=== PATIENT | female | born 1995 | race African-American/Black ===

== ENCOUNTER 2017-07-13 13:06 | Observation (INO) | payer BC, MEDICAID ==
[~2017-07-13] VITALS: Ht 167.6 cm; Wt 101.0 kg
[2017-07-13] VITALS (15 sets, daily range): BP systolic 123–138; BP diastolic 55–78; PULSE 97–118; RESP 18; TEMP 98
--- NOTE | 2017-07-13 15:40 | PD ---
HPI Chief Complaint Elevated blood pressure Date Seen: Jul 13, 2017 Time Seen: 15:15 Travel History International Travel<30 Days: No Contact w/Intl Traveler<30Days: No Known Affected Area: No History of Present Illness HPI Patient is a 21-year-old at 30 weeks and 1 day who presents as a referral from [facility] for elevated blood pressure. At [facility], she had a recorded blood pressure 172/92. She reports a headache today, nausea for the past 3 days, progressively worse shortness of breath throughout . She denies any visual changes, vomiting, chest pain, pain under the ribs. She reports that her ankles have been swelling mildly for the past 2 weeks. History Past Medical History Narrative Medical Patient reports a history of asthma. Obstetric History Obstetric History Patient is a . She reports that she has had an uncomplicated thus far. Past Surgical History Surgical History: No Previous Surgery Family History Narrative Family History Patient reports that her maternal grandmother has diabetes. Social History Narrative Social History Patient lives at home with her aunt. Alcohol Use: No Tobacco Use: No Substance Abuse: No Allergies-Medications (Allergen,Severity, Reaction): Coded Allergies: grass pollen (Verified Allergy, Mild, 07/13/17) milk (Verified Adverse Reaction, Mild, 07/13/17) Review of Systems General / Constitutional: No: Fever, Chills Eyes: No: Visual changes HENT: Headaches Cardiovascular: No: Chest Pain or Discomfort Respiratory: Short of Breath Gastrointestinal: Nausea, No: Vomiting, Abdominal Pain Genitourinary: No: Dysuria Musculoskeletal: Edema (ankles), No: Cramping, Pain Physical Exam Blood pressure 120/63, 131/67, 123/55 Pulse 1 16 Respirations 18 Temperature 99.0 Pulse ox 99-100% on room air Pain 3/10 Narrative GENERAL: Well-nourished, well-developed patient. SKIN: Warm and dry. HEAD: Normocephalic and atraumatic. EYES: No scleral icterus. No injection or drainage. ENT: No nasal drainage noted. Mucous membranes pink. Airway patent. NECK: Supple, trachea midline. No JVD. CARDIOVASCULAR: Regular rate and rhythm without murmurs, gallops, or rubs. RESPIRATORY: Breath sounds equal bilaterally. No accessory muscle use. ABDOMEN/GI: Abdomen soft, non-tender, bowel sounds present, no rebound, no guarding Gravid to 30 weeks size GENITOURINARY: Uterine Contractions: 3 contractions every 3-4 minutes, then no contractions FHT's: Category: Category 1 Baseline: 150 Reactive: 10 x 10 accelerations present, but no 15 x 15 accelerations present. Variability: moderate Decels: none EXTREMITIES: No cyanosis or edema. BACK: Nontender without obvious deformity. No CVA tenderness. NEUROLOGICAL: Awake and alert. Motor and sensory grossly within normal limits. Five out of 5 muscle strength in all muscle groups. Normal speech. Data Data Vital Signs Reviewed: Yes Orders Orders Cbc No Diff, Includes Plts (07/13/17 15:25) Comprehensive Metabolic Panel (07/13/17 15:25) Uric Acid (07/13/17 15:25) Urinalysis - C+S If Indicated (07/13/17 15:25) Protein Creat Ratio, Random Ur (07/13/17 15:25) MDM Plan Patient is a 21-year-old at 30 weeks and 1 day who presents as a referral from [facility] for elevated blood pressure. At [facility], she had a recorded blood pressure 172/92. Blood pressures here have been: 120/63, 131/67, 123/55. 1. elevated bp in -Monitor vitals, heart rate, labor status/tocometry -UA, urine protein/creatinine ratio -CBC, CMP, uric acid -If all labs are normal, plan to discharge patient home 2. headache -Tylenol d/w Dr. Bosch Addendum: WBC of 17.7, hemoglobin of 11.3. Urine: Hazy urine, 40 ketones, trace occult blood, positive nitrites, large leukocyte esterase, 9 RBCs, 51 WBCs, occasional bacteria, few mucus, culture indicated. Urine random total protein of 16, protein/creatinine ratio of 0.31. Given these labs, will admit for IV antibiotics for UTI and 24-hour urine protein collection. -Ceftriaxone 1 g IV every 12 hours -24 hour urine protein -continue plan as above Diagnosis Diagnosis: Primary Impression: Urine protein increased Additional Impressions: BP (high blood pressure) Headache UTI (urinary tract infection) in , antepartum Garcia Edwards MD R2 Jul 13, 2017 15:40
[2017-07-13] MEDS ORDERED: ACETAMINOPHEN 325 MG TAB PO ONE (15:45)
[2017-07-13 15:54] LABS: HEMATOCRIT 34.3 % (35.0-46.0); MEAN CELL VOLUME 91.6 FL (80.0-100.0); MEAN CORPUSCULAR HEMOGLOBIN 30.3 PG (27.0-34.0); MEAN CORPUSCULAR HGB CONC 33.1 % (32.0-36.0); PLATELET COUNT 194 TH/MM3 (150-450); RED BLOOD COUNT 3.75 MIL/MM3 (4.00-5.30); RED CELL DISTRIBUTION WIDTH 15.4 % (11.6-17.2); REVIEW FLAG FINAL; WHITE BLOOD COUNT 17.7 TH/MM3 (4.0-11.0)
[2017-07-13 16:07] LABS: BACTERIA, URINE OCC /hpf; BLOOD, URINE TRACE (NEG); COMMENT (UR) CULTURE INDICATED; CULTURE IF INDICATED CULTURE INDICATED; GLUCOSE,URINE NEG (NEG); KETONE, URINE 40 mg/dL (NEG); MUCUS URINE FEW /lpf (OCC); NITRITE,URINE POS (NEG); PH, URINE 6.5 (5.0-8.5); SQUAMOUS EPITHELIAL CELL URINE 5 /hpf (0-5); URINE COLOR YELLOW (YELLW/STRAW)
[2017-07-13 16:25] LABS: ALT (GPT) 28 U/L (9-42); ANION GAP 10 MEQ/L (5-15); AST (GOT) 20 U/L (16-38); BICARBONATE 23.1 MEQ/L (21.0-32.0); BLOOD UREA NITROGEN 3 MG/DL (7-18); CHLORIDE 105 MEQ/L (98-107); GLOMERULAR FILTRATION RATE 167 ML/MIN (>89); POTASSIUM 3.3 MEQ/L (3.5-5.1); SODIUM (NA) 138 MEQ/L (136-145)
[2017-07-13 16:28] LABS: ALKALINE PHOSPHATASE 116 U/L (45-117); TOTAL BILIRUBIN ADULT 0.4 MG/DL (0.2-1.0)
[2017-07-13 16:50] LABS: URIC ACID 4.6 MG/DL (2.6-6.0)
--- NOTE | 2017-07-13 16:57 | HHI.HP ---
History & Physical H&P HPI HPI Chief Complaint Elevated blood pressure Date Seen: Jul 13, 2017 Time Seen: 15:15 Travel History International Travel<30 Days: No Contact w/Intl Traveler<30Days: No Known Affected Area: No History of Present Illness HPI Patient is a 21-year-old at 30 weeks and 1 day who presents as a referral from [facility] for elevated blood pressure. At [facility], she had a recorded blood pressure 172/92. She reports a headache today, nausea for the past 3 days, progressively worse shortness of breath throughout . She denies any visual changes, vomiting, chest pain, pain under the ribs. She reports that her ankles have been swelling mildly for the past 2 weeks. History (Limited) History Past Medical History Narrative Medical Patient reports a history of asthma. Obstetric History Obstetric History Patient is a . She reports that she has had an uncomplicated thus far. Past Surgical History Surgical History: No Previous Surgery Family History Narrative Family History Patient reports that her maternal grandmother has diabetes. Social History Narrative Social History Patient lives at home with her aunt. Alcohol Use: No Tobacco Use: No Substance Abuse: No Allergies-Medications Allergies-Medications (Allergen,Severity, Reaction): Coded Allergies: grass pollen (Verified Allergy, Mild, 07/13/17) milk (Verified Adverse Reaction, Mild, 07/13/17) ROS Review of Systems General / Constitutional: No: Fever, Chills Eyes: No: Visual changes HENT: Headaches Cardiovascular: No: Chest Pain or Discomfort Respiratory: Short of Breath Gastrointestinal: Nausea, No: Vomiting, Abdominal Pain Genitourinary: No: Dysuria Musculoskeletal: Edema (ankles), No: Cramping, Pain Physical Exam Physical Exam Blood pressure 120/63, 131/67, 123/55 Pulse 1 16 Respirations 18 Temperature 99.0 Pulse ox 99-100% on room air Pain 3/10 Narrative GENERAL: Well-nourished, well-developed patient. SKIN: Warm and dry. HEAD: Normocephalic and atraumatic. EYES: No scleral icterus. No injection or drainage. ENT: No nasal drainage noted. Mucous membranes pink. Airway patent. NECK: Supple, trachea midline. No JVD. CARDIOVASCULAR: Regular rate and rhythm without murmurs, gallops, or rubs. RESPIRATORY: Breath sounds equal bilaterally. No accessory muscle use. ABDOMEN/GI: Abdomen soft, non-tender, bowel sounds present, no rebound, no guarding Gravid to 30 weeks size GENITOURINARY: Uterine Contractions: 3 contractions every 3-4 minutes, then no contractions FHT's: Category: Category 1 Baseline: 150 Reactive: 10 x 10 accelerations present, but no 15 x 15 accelerations present. Variability: moderate Decels: none EXTREMITIES: No cyanosis or edema. BACK: Nontender without obvious deformity. No CVA tenderness. NEUROLOGICAL: Awake and alert. Motor and sensory grossly within normal limits. Five out of 5 muscle strength in all muscle groups. Normal speech. Data Data Data Vital Signs Reviewed: Yes Orders Orders Cbc No Diff, Includes Plts (07/13/17 15:25) Comprehensive Metabolic Panel (07/13/17 15:25) Uric Acid (07/13/17 15:25) Urinalysis - C+S If Indicated (07/13/17 15:25) Protein Creat Ratio, Random Ur (07/13/17 15:25) MDM MDM Plan Patient is a 21-year-old at 30 weeks and 1 day who presents as a referral from [facility] for elevated blood pressure. At [facility], she had a recorded blood pressure 172/92. Blood pressures here have been: 120/63, 131/67, 123/55. Given her labs with elevated urine protein, will admit for 24-hour urine protein collection and IV antibiotics for UTI. 1. elevated protein in urine: Urine random total protein of 16, protein/ creatinine ratio of 0.31. -Monitor vitals, heart rate, labor status/tocometry -24h urine protein -Observation for 24h urine collection and c/f lack of follow up 2. UTI with WBC of 17.7, Urine: Hazy urine, 40 ketones, trace occult blood, positive nitrites, large leukocyte esterase, 9 RBCs, 51 WBCs, occasional bacteria, few mucus, culture indicated. -Ceftriaxone 1 g IV every 12 hours 3. headache -Tylenol PRN d/w Dr. Bosch Diagnosis Diagnosis: Primary Impression: Urine protein increased Additional Impressions: Headache UTI (urinary tract infection) in , antepartum Garcia Edwards MD R2 Jul 13, 2017 16:57
[2017-07-13] MEDS ORDERED: LACTULOSE SYRUP 20 GM/30 ML CUP PO PRN (17:00)
[2017-07-13] MEDS ORDERED: NALOXONE HCL 0.4 MG/ML AMP IV PUSH PRN (17:00)
[2017-07-13] MEDS ORDERED: SODIUM CHLORIDE 0.9% FLUSH 10 ML FLUSH IV FLUSH PRN (17:00)
[2017-07-13] MEDS ORDERED: SENNOSIDES 8.6 MG TAB PO PRN (17:00)
[2017-07-13] MEDS ORDERED: ONDANSETRON HCL 4 MG/2 ML VIAL IVP PRN (17:00)
[2017-07-13] MEDS ORDERED: ACETAMINOPHEN 325 MG TAB PO PRN (17:00)
[2017-07-13] MEDS ORDERED: BISACODYL 10 MG SUPP RECTAL PRN (17:00)
[2017-07-13] MEDS ORDERED: MAGNESIUM HYDROXIDE SUSP 30 ML CUP PO PRN (17:00)
[2017-07-13] MEDS ORDERED: POTASSIUM CHLORIDE 10 MEQ CAP PO ONE (18:00)
[2017-07-13] MEDS: cefTRIAXone INJ 1,000 MG in SODIUM CHLORIDE 0.9% INJ 100 ML IV SCH (19:35)
[2017-07-13] MEDS: SODIUM CHLORIDE 0.9% FLUSH 10 ML FLUSH IV FLUSH SCH (20:00)
[2017-07-13] MEDS: DOCUSATE SODIUM 50 MG/SENNA 8.6 MG TAB PO SCH (21:46)
[2017-07-14] VITALS (12 sets, daily range): BP systolic 105–131; BP diastolic 48–71; PULSE 101–114; RESP 17–18; TEMP 97.8–98.2
[2017-07-14] MEDS: SODIUM CHLORIDE 0.9% FLUSH 10 ML FLUSH IV FLUSH SCH (09:00)
[2017-07-14] MEDS: DOCUSATE SODIUM 50 MG/SENNA 8.6 MG TAB PO SCH (09:00)
--- NOTE | 2017-07-14 10:48 | PD.OB.ANTE ---
Subjective Diagnosis: (1) Urine protein increased Diagnosis: Principal (2) UTI (urinary tract infection) in , antepartum Diagnosis: Secondary Interval History Patient reports feeling well. She denies any complaints. Antepartum ROS: Reports: movement normal, Denies: New complaints, Loss of fluid, Vaginal bleeding, Contractions Objective Vital Signs Vital Signs Date Time Temp Pulse Resp B/P (MAP) Pulse Ox O2 Delivery O2 Flow Rate FiO2 07/14/17 07:26 97.9 101 17 127/62 (83) 07/14/17 03:46 98.0 18 07/14/17 03:45 109 105/48 (67) 07/14/17 01:12 98.2 18 07/14/17 01:04 114 112/48 (69) 07/13/17 23:48 98.0 07/13/17 22:45 18 07/13/17 22:40 97 128/68 (88) 07/13/17 19:52 118 18 07/13/17 19:51 130/67 (88) 07/13/17 16:50 106 136/78 (97) 07/13/17 16:41 104 127/77 (94) 07/13/17 16:30 105 135/67 (89) 07/13/17 16:20 117 128/66 (86) 07/13/17 16:10 112 133/63 (86) 07/13/17 16:00 111 125/67 (86) 07/13/17 15:50 114 138/65 (89) 07/13/17 15:40 115 138/69 (92) 07/13/17 15:35 113 07/13/17 15:30 112 123/55 (77) Lab & Micro Results Test 07/13/17 15:35 White Blood Count 17.7 TH/MM3 Red Blood Count 3.75 MIL/MM3 Hemoglobin 11.3 GM/DL Hematocrit 34.3 % Mean Corpuscular Volume 91.6 FL Mean Corpuscular Hemoglobin 30.3 PG Mean Corpuscular Hemoglobin Concent 33.1 % Red Cell Distribution Width 15.4 % Platelet Count 194 TH/MM3 Mean Platelet Volume 8.9 FL Urine Color YELLOW Urine Turbidity HAZY Urine pH 6.5 Urine Specific [place] 1.007 Urine Protein NEG mg/dL Urine Glucose (UA) NEG mg/dL Urine Ketones 40 mg/dL Urine Occult Blood TRACE Urine Nitrite POS Urine Bilirubin NEG Urine Urobilinogen LESS THAN 2.0 MG/DL Urine Leukocyte Esterase LARGE Urine RBC 9 /hpf Urine WBC 51 /hpf Urine Squamous Epithelial Cells 5 /hpf Urine Bacteria OCC /hpf Urine Mucus FEW /lpf Microscopic Urinalysis Comment CULTURE INDICATED Urine Random Creatinine 51 MG/DL Urine Random Total Protein 16 MG/DL Urine Protein/Creatinine Ratio 0.31 Blood Urea Nitrogen 3 MG/DL Creatinine 0.56 MG/DL Random Glucose 101 MG/DL Total Protein 6.7 GM/DL Albumin 2.6 GM/DL Calcium Level 8.7 MG/DL Uric Acid 4.6 MG/DL Alkaline Phosphatase 116 U/L Aspartate Amino Transf (AST/SGOT) 20 U/L Alanine Aminotransferase (ALT/SGPT) 28 U/L Total Bilirubin 0.4 MG/DL Sodium Level 138 MEQ/L Potassium Level 3.3 MEQ/L Chloride Level 105 MEQ/L Carbon Dioxide Level 23.1 MEQ/L Anion Gap 10 MEQ/L Estimat Glomerular Filtration Rate 167 ML/MIN Urine Opiates Screen NEG Urine Barbiturates Screen NEG Urine Amphetamines Screen NEG Urine Benzodiazepines Screen NEG Urine Cocaine Screen NEG Urine Cannabinoids Screen NEG Date/Time Source Procedure Growth Status 07/13/17 15:35 Urine Clean Catch Urine Culture Pending Received Physical Exam GENERAL: Well-nourished, well-developed patient. CARDIOVASCULAR: Regular rate and rhythm without murmurs, gallops, or rubs. RESPIRATORY: Breath sounds equal bilaterally. No accessory muscle use. ABDOMEN/GI: Abdomen soft, non-tender. Fundus: c/w 30 week gestation GENITOURINARY: External Genitalia: Uterine Contractions: none FHT's: Category: Cat I Baseline: 145 Reactive: reactive Variability: moderate Decels: none EXTREMITIES: No cyanosis or edema, non-tender, without signs of DVT. Assessment and Plan Problem List: (1) Urine protein increased ICD Codes: R80.9 - Proteinuria, unspecified Status: Acute (2) UTI (urinary tract infection) in , antepartum ICD Codes: O23.40 - Unspecified infection of urinary tract in , unspecified trimester Status: Acute Assessment and Plan Patient is a 21-year-old at 30 weeks and 2 day who presents as a referral from [facility] for elevated blood pressure. At [facility], she had a recorded blood pressure 172/92. Blood pressures here have been wnl. Given her labs with elevated urine protein, will admit for 24-hour urine protein collection and IV antibiotics for UTI. 1. elevated protein in urine: Urine random total protein of 16, protein/ creatinine ratio of 0.31. -Monitor vitals, NST, labor status/tocometry -24h urine protein -plan to discharge if 24-hour urine protein collection is normal 2. UTI with WBC of 17.7, Urine: Hazy urine, 40 ketones, trace occult blood, positive nitrites, large leukocyte esterase, 9 RBCs, 51 WBCs, occasional bacteria, few mucus, culture indicated. -Ceftriaxone 1 g IV every 12 hours -Plan discharge on Macrobid or Keflex for the remainder of 3-7 days -Follow up urine culture and sensitivities s/d/w Dr. Hiro Edwards,Garcia Fajardo MD R2 Jul 14, 2017 10:48
[2017-07-14] MEDS: cefTRIAXone INJ 1,000 MG in SODIUM CHLORIDE 0.9% INJ 100 ML IV SCH (18:50)
[2017-07-14 20:18] LABS: URINE TOTAL PROTEIN TIMED 5.9 MG/DL
--- NOTE | 2017-07-14 20:33 | HHI.PR ---
CONFERENCE TRANSLATOR Note Note ANTEPARTUM NOTE Pt completed 24hr urine protein collection. Result demonstrated 248mg of protein. BPs have been normal range. Proteinuria likely 2' to UTI. Pt is now s/p IV rocephin x2. She was counseled on the results and that she is stable for d/c home. She has f /u appt on Wednesday. Precautions reviewed. Alexei Reeves MD Jul 14, 2017 20:33
--- NOTE | 2017-07-14 20:34 | HHI.DCPOC ---
Discharge Care Plan Diagnosis: (1) Urine protein increased (2) UTI (urinary tract infection) in , antepartum Report Symptoms to Your Doctor -Temperature above 100.5 degrees -Redness, of incision or excessive or foul smelling drainage -Unusual pain or calf pain -Increased vaginal bleeding -Painful or difficulty urinating -Feelings of extreme sadness or anxiety after 2 weeks Goals to Promote Your Health * To prevent worsening of your condition and complications * To maintain your health at the optimal level Directions to Meet Your Goals Take your medications as prescribed Follow your dietary instruction Follow activity as directed Ensure plenty of rest for recovery Drink fluids for hydration Keep your appointments as scheduled Take your immunizations and boosters as scheduled If your symptoms worsen call your PCP, if no PCP go to Urgent Care Center or Emergency Room Smoking is Dangerous to Your Health. Avoid second hand smoke Call the 24-hour crisis hotline for domestic abuse at Alexei Reeves MD Jul 14, 2017 20:34
--- NOTE | 2017-07-14 20:37 | HHI.DS ---
Admission Date Jul 13, 2017 at 16:49 Discharge Date: Jul 14, 2017 Admitting Diagnosis 1. proteinuria 2. UTI Diagnosis: Brief History Patient is a 21-year-old at 30 weeks and 1 day who presents as a referral from [facility] for elevated blood pressure. At [facility], she had a recorded blood pressure 172/92. She reports a headache today, nausea for the past 3 days, progressively worse shortness of breath throughout . She denies any visual changes, vomiting, chest pain, pain under the ribs. She reports that her ankles have been swelling mildly for the past 2 weeks. Hospital Course Pt underwent 24 hour urine protein collection which demonstrated 248mg of protein. This is likely 2' to a UTI. Pt received 2 doses of IV rocephin for UTI. BPs remained within normal limits. Stable for d/c home. Pt Condition on Discharge: Good Discharge Disposition: Discharge Home Discharge Instructions Diet Instructions: As Tolerated, No Restrictions Activities You Can Perform: Regular-No Restrictions Alexei Reeves MD Jul 14, 2017 20:37
[2017-07-21 08:29] LABS: BATH SALTS (MDPV) UR NEG (NEG); ECSTASY (MDMA) UR NEG (NEG); HEROIN (6-ACETYLMORPHINE) UR NEG (NEG); K2 SPICE UR NEG (NEG); OBGABAPENTIN UR NEG (NEG); OBHYDROMORPHONE U NEG (NEG); OBMETHADONE UR NEG (NEG); PHENCYCLIDINE URINE NEG (NEG)
== END 2017-07-14 20:48 | disposition home or self-care (01) ==
LOC: HOBED 13:06 → H2EB 16:49
PROVIDERS: ADMIT Obstetrics & Gynecology; ATTEND Obstetrics & Gynecology
DX: O12.13 Gestational proteinuria, third trimester (principal); O23.43 Unspecified infection of urinary tract in pregnancy, third trimester; O26.893 Other specified pregnancy related conditions, third trimester; R51 Headache; R03.0 Elevated blood-pressure reading, without diagnosis of hypertension; O99.513 Diseases of the respiratory system complicating pregnancy, third trimester; J45.909 Unspecified asthma, uncomplicated; Z3A.30 30 weeks gestation of pregnancy
CPT/HCPCS: 59025; 80053; 80307; 81001; 82570; 84156; 84157; 84550; 85027; 87086; 96365; 96376; 99285; G0378; G0481; J0696

== ENCOUNTER 2017-07-27 16:30 | Emergency (ER) | payer BC, MEDICAID ==
[~2017-07-27] VITALS: Ht 167.6 cm; Wt 102.1 kg
[~2017-07-27 16:30] MED LIST: PREN29TA PO
[2017-07-27 16:52] VITALS: BP 123/86; PULSE 128
[2017-07-27 17:00] VITALS: RESP 18; TEMP 97.5
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
[2017-07-27] MEDS ORDERED: LACTATED RINGER'S 1000 ML INJ 1,000 ML IV SCH (19:00)
[2017-07-27 19:15] VITALS: RESP 18
[2017-07-27 19:45] VITALS: RESP 18
--- NOTE | 2017-07-27 19:50 | PD ---
History of Present Illness History of Present Illness I personally saw and examined the patient with the resident. In addition performed a vaginal exam which is closed/thick/high. Repeat examination performed over 1 hour was unchanged. The patient denies feeling any contractions and denies any continuing respiratory symptoms. She is advised to go to the ED for any respiratory symptoms and she declines. Her contractions have spaced out after 2 L of IV fluid. There is no evidence of labor, the patient is normal blood pressure, and she is given strict labor precautions. Emily Bosch MD Jul 27, 2017 19:50
[2017-07-27 20:15] VITALS: RESP 18
[2017-07-27 21:41] LABS: BACTERIA, URINE RARE /hpf; BLOOD, URINE NEG (NEG); COMMENT (UR) CULT NOT INDICATED; CULTURE IF INDICATED CULT NOT INDICATED; GLUCOSE,URINE NEG (NEG); KETONE, URINE 40 mg/dL (NEG); MUCUS URINE FEW /lpf (OCC); NITRITE,URINE NEG (NEG); SQUAMOUS EPITHELIAL CELL URINE 3 /hpf (0-5); URINE COLOR YELLOW (YELLW/STRAW)
--- NOTE | 2017-07-28 00:10 | PD ---
MDM Diagnosis Diagnosis: Primary Impression: 32 weeks gestation of Additional Impression: False labor before 37 completed weeks of gestation during in third trimester, antepartum Disposition: 01 DISCHARGE HOME Condition: Good Patient Instructions: General Instructions, Labor (ED), Abdominal Pain in (ED) Departure Forms: Tests/Procedures Emily Bosch MD Jul 28, 2017 00:10
== END 2017-07-28 00:15 | disposition home or self-care (01) ==
LOC: HOBED 16:30
DX: O47.03 False labor before 37 completed weeks of gestation, third trimester (principal); O99.013 Anemia complicating pregnancy, third trimester; R19.7 Diarrhea, unspecified; J45.909 Unspecified asthma, uncomplicated; R00.0 Tachycardia, unspecified; Z3A.32 32 weeks gestation of pregnancy
CPT/HCPCS: 81001; 96360; 96361; 99282

== ENCOUNTER 2017-09-15 11:24 | Inpatient (IN) | payer BC, MEDICAID ==
[2017-09-15] VITALS (111 sets, daily range): BP systolic 102–160; BP diastolic 54–105; PULSE 87–122; RESP 16–20; TEMP 98.3–98.5
--- NOTE | 2017-09-15 12:22 | PD ---
HPI Travel History International Travel<30 Days: No Contact w/Intl Traveler<30Days: No Known Affected Area: No History of Present Illness HPI Ms. Villarreal is a 21 yo G1 patient of Lenora Rios at 39 2/7 weeks (CARMINE 09/20/2017) who presents at request of [facility] staff due to elevated blood pressure in clinic today. Patient reports that her blood pressure was 160/100mmHg. Patient reports that she has had elevated blood pressure recently during , but denies elevated blood pressure prior to getting . Patient does not report any headache or vision changes; she has chronic migraines but has not had a headache in the past ~3 days. Patient reports that she has recently noticed increased lower extremity edema. Patient does not report any urinary changes. Patient does not report contractions or abdominal pain. Patient reports normal movement. Patient has not had any vaginal bleeding; she has had some whitish discharge but no vaginal itching or pain. Patient does not report chest pain, shortness of breath, nausea/vomiting, or other concerns at this time. Patient's records reviewed: patient is GBS+. Patient with B+ blood. Labs for infectious diseases negative. Patient reports normal blood glucose testing in . No US available in EMR for review; patient reports no US abnormalities identified Weeks Gestation: 39 : 1 History Past Medical History Narrative Medical prior asthma- has not needed inhaler in years Obstetric History Obstetric History G1 Past Surgical History Surgical History: No Previous Surgery Family History Narrative Family History DM, HTN, unspecified cancer Social History Alcohol Use: No Tobacco Use: No Substance Abuse: No Allergies-Medications (Allergen,Severity, Reaction): Coded Allergies: grass pollen (Verified Allergy, Mild, 07/27/17) milk (Verified Adverse Reaction, Mild, 07/27/17) Home Meds Reported Medications Vit-Iron Carbonyl ( Plus Iron 29-1 mg) 29 Mg Iron-1 Mg Tab, 1 TAB PO DAILY for Nutritional Supplement, #30 TAB 0 Refills 07/27/17 Review of Systems General / Constitutional: No: Fever Eyes: No: Blurred Vision HENT: No: Headaches Cardiovascular: No: Chest Pain or Discomfort Respiratory: No: Short of Breath Gastrointestinal: No: Nausea, Vomiting, Abdominal Pain Genitourinary: No: Urgency, Frequency, Dysuria Skin: No Rash, No Itching Neurologic: No: Weakness, Dizziness, Syncope Psychiatric: No: Anxiety, Depression Physical Exam T 98.3 RR 18 HR 98 BP 150/86 Narrative GENERAL: Well-nourished, well-developed patient. SKIN: Warm and dry. HEAD: Normocephalic and atraumatic. EYES: No scleral icterus. No injection or drainage. ENT: No nasal drainage noted. Mucous membranes pink. Airway patent. CARDIOVASCULAR: Regular rate and rhythm without murmurs. Normal perfusion RESPIRATORY: CTAB; normal rate EXTREMITIES: No cyanosis or edema. NEUROLOGICAL: Awake and alert. Motor and sensory function grossly within normal limits. Reflexes- knees not hyperreactive. clonus testing normal ABDOMEN/GI: Abdomen soft, non-tender, bowel sounds present, no rebound, no guarding Gravid GENITOURINARY: External Genitalia: intact and normal in appearance Cervix: Dilatation: 0-1 Effacement: 0-20% Station: -3 Presentation: V Membranes: Intact Uterine Contractions: q8 min FHT's: Category: 1 Baseline: 160 Reactive: Y Variability: Mod Decels: None Data Data Vital Signs Reviewed: Yes [facility] Medical Record Reviewed: Yes Narrative Course / MDM Ms. Villarreal is a 21 yo G1 patient of Lenora Rios at 39 2/7 weeks (CARMINE 09/20/2017) who presents at request of [facility] staff due to elevated blood pressure in clinic today -BP 150/86 in OB ED -Cat 1 rhythm -Cervix 0-1cm dilated -Contractions q8 min on CTG; patient does not feel them -No symptoms suggestive of PREE -GBS+ Plan: -Will continue EFM/CTG -Will continue to check BP q15min -Will check CBC, CMP, UA, uric acid, urine protein/Cr ratio Interval: -irregular contractions/irritability -Cat 1 rhythm -CBC, CMP benign. Urine Protein/Cr ratio 0.3 -SBP's in 130's-140's Plan: Due to elevated BP in association with proteinuria, will plan to admit patient for induction of labor -Will start IVF -Will start GBS ppx -Will plan for induction with Cytotec Reid Mosley MD, R3 Sep 15, 2017 12:22
[2017-09-15 13:01] LABS: HEMATOCRIT 38.7 % (35.0-46.0); MEAN CELL VOLUME 91.5 FL (80.0-100.0); MEAN CORPUSCULAR HEMOGLOBIN 30.7 PG (27.0-34.0); MEAN CORPUSCULAR HGB CONC 33.5 % (32.0-36.0); MEAN PLATELET VOLUME 10.2 FL (7.0-11.0); PLATELET COUNT 138 TH/MM3 (150-450); RED BLOOD COUNT 4.23 MIL/MM3 (4.00-5.30); RED CELL DISTRIBUTION WIDTH 15.3 % (11.6-17.2); WHITE BLOOD COUNT 12.1 TH/MM3 (4.0-11.0)
[2017-09-15 13:10] LABS: BACTERIA, URINE OCC /hpf; BILIRUBIN, URINE NEG (NEG); BLOOD, URINE TRACE (NEG); GLUCOSE,URINE NEG (NEG); KETONE, URINE NEG (NEG); NITRITE,URINE NEG (NEG); PH, URINE 6.5 (5.0-8.5); SQUAMOUS EPITHELIAL CELL URINE 11 /hpf (0-5); TRANSITIONAL EPI CELLS, URINE <1 /hpf; URINE COLOR LIGHT-YELLOW (YELLW/STRAW); URINE LEUKOCYTE ESTERASE LARGE (NEG)
[2017-09-15 13:15] LABS: ALBUMIN 2.3 GM/DL (3.4-5.0); ALT (GPT) 22 U/L (9-42); AST (GOT) 20 U/L (16-38); BICARBONATE 22.5 MEQ/L (21.0-32.0); BLOOD UREA NITROGEN 5 MG/DL (7-18); CALCIUM 8.3 MG/DL (8.5-10.1); CHLORIDE 106 MEQ/L (98-107); CREATININE 0.64 MG/DL (0.50-1.00); GLOMERULAR FILTRATION RATE 143 ML/MIN (>89); GLUCOSE,RANDOM 134 MG/DL (74-106); SODIUM (NA) 138 MEQ/L (136-145)
[2017-09-15 13:18] LABS: ALKALINE PHOSPHATASE 247 U/L (45-117); TOTAL BILIRUBIN ADULT 0.5 MG/DL (0.2-1.0); TOTAL PROTEIN 6.4 GM/DL (6.4-8.2)
--- NOTE | 2017-09-15 13:47 | HHI.HP ---
History & Physical H&P Patient Name: Ky Villarreal Unit Number: [id number] Date of : 1995 Patient Status: Registered Emergency Room Attending Doctor: Nae Bob MD HPI HPI Travel History International Travel<30 Days: No Contact w/Intl Traveler<30Days: No Known Affected Area: No History of Present Illness HPI Ms. Villarreal is a 21 yo G1 patient of Lenora Rios at 39 2/7 weeks (CARMINE 09/20/2017) who presents at request of [facility] staff due to elevated blood pressure in clinic today. Patient reports that her blood pressure was 160/100mmHg. Patient reports that she has had elevated blood pressure recently during , but denies elevated blood pressure prior to getting . Patient does not report any headache or vision changes; she has chronic migraines but has not had a headache in the past ~3 days. Patient reports that she has recently noticed increased lower extremity edema. Patient does not report any urinary changes. Patient does not report contractions or abdominal pain. Patient reports normal movement. Patient has not had any vaginal bleeding; she has had some whitish discharge but no vaginal itching or pain. Patient does not report chest pain, shortness of breath, nausea/vomiting, or other concerns at this time. Patient's records reviewed: patient is GBS+. Patient with B+ blood. Labs for infectious diseases negative. Patient reports normal blood glucose testing in . No US available in EMR for review; patient reports no US abnormalities identified Weeks Gestation: 39 : 1 History (Limited) History Past Medical History Narrative Medical prior asthma- has not needed inhaler in years Obstetric History Obstetric History G1 Past Surgical History Surgical History: No Previous Surgery Family History Narrative Family History DM, HTN, unspecified cancer Social History Alcohol Use: No Tobacco Use: No Substance Abuse: No Allergies-Medications Allergies-Medications (Allergen,Severity, Reaction): Coded Allergies: grass pollen (Verified Allergy, Mild, 07/27/17) milk (Verified Adverse Reaction, Mild, 07/27/17) Home Meds Reported Medications Vit-Iron Carbonyl ( Plus Iron 29-1 mg) 29 Mg Iron-1 Mg Tab, 1 TAB PO DAILY for Nutritional Supplement, #30 TAB 0 Refills 07/27/17 ROS Review of Systems General / Constitutional: No: Fever Eyes: No: Blurred Vision HENT: No: Headaches Cardiovascular: No: Chest Pain or Discomfort Respiratory: No: Short of Breath Gastrointestinal: No: Nausea, Vomiting, Abdominal Pain Genitourinary: No: Urgency, Frequency, Dysuria Skin: No Rash, No Itching Neurologic: No: Weakness, Dizziness, Syncope Psychiatric: No: Anxiety, Depression Physical Exam Physical Exam T 98.3 RR 18 HR 98 BP 150/86 Narrative GENERAL: Well-nourished, well-developed patient. SKIN: Warm and dry. HEAD: Normocephalic and atraumatic. EYES: No scleral icterus. No injection or drainage. ENT: No nasal drainage noted. Mucous membranes pink. Airway patent. CARDIOVASCULAR: Regular rate and rhythm without murmurs. Normal perfusion RESPIRATORY: CTAB; normal rate EXTREMITIES: No cyanosis or edema. NEUROLOGICAL: Awake and alert. Motor and sensory function grossly within normal limits. Reflexes- knees not hyperreactive. clonus testing normal ABDOMEN/GI: Abdomen soft, non-tender, bowel sounds present, no rebound, no guarding Gravid GENITOURINARY: External Genitalia: intact and normal in appearance Cervix: Dilatation: 0-1 Effacement: 0-20% Station: -3 Presentation: V Membranes: Intact Uterine Contractions: q8 min FHT's: Category: 1 Baseline: 160 Reactive: Y Variability: Mod Decels: None Data Data Data Vital Signs Reviewed: Yes MDM MDM Medical Record Reviewed: Yes Narrative Course / MDM Ms. Villarreal is a 21 yo G1 patient of Lenora Rios at 39 2/7 weeks (CARMINE 09/20/2017) who presents at request of [facility] staff due to elevated blood pressure in clinic today -BP 150/86 in OB ED -Cat 1 rhythm -Cervix 0-1cm dilated -Contractions q8 min on CTG; patient does not feel them -No symptoms suggestive of PREE -GBS+ Plan: -Will continue EFM/CTG -Will continue to check BP q15min -Will check CBC, CMP, UA, uric acid, urine protein/Cr ratio Interval: -irregular contractions/irritability -Cat 1 rhythm -CBC, CMP benign. Urine Protein/Cr ratio 0.3 -SBP's in 130's-140's Plan: Due to elevated BP in association with proteinuria, will plan to admit patient for induction of labor -Will start IVF -Will start GBS ppx -Will plan for induction with Cytotec Reid Mosley MD, R3 Sep 15, 2017 13:47
[2017-09-15] MEDS ORDERED: LACTATED RINGER'S 1000 ML INJ 1,000 ML IV PRN (13:55)
[2017-09-15] MEDS ORDERED: LIDOCAINE HCL 1% 30 ML VIAL INFIL PRN (14:00)
[2017-09-15] MEDS ORDERED: CITRIC ACID-SODIUM CITRATE LIQ 30 ML UDC PO SCH (14:00)
[2017-09-15] MEDS ORDERED: MINERAL OIL 10 ML VIAL TOPICAL PRN (14:00)
[2017-09-15] MEDS ORDERED: PENICILLIN G POTASSIUM INJ 5,000,000 UNITS in SODIUM CHLORIDE 0.9% INJ 100 ML IV ONE (14:00)
[2017-09-15] MEDS ORDERED: OXYTOCIN 30 UNITS-500ML PREMIX 500 ML IV ONE (14:00)
[2017-09-15] MEDS ORDERED: SODIUM CHLORID 0.9% 500 ML INJ 500 ML IV PRN (14:00)
[2017-09-15] MEDS ORDERED: LIDOCAINE HCL 1% 30 ML VIAL I-DERMAL PRN (14:00)
[2017-09-15] MEDS ORDERED: SODIUM CHLOR 0.9% 1000 ML INJ 1,000 ML IV PRN (14:15)
[2017-09-15] MEDS: LACTATED RINGER'S 1000 ML INJ 1,000 ML IV SCH ×2 (14:36→21:55)
[2017-09-15] MEDS ORDERED: MISOPROSTOL 100 MCG TAB VAGINAL ONE (16:45)
[2017-09-15] MEDS ORDERED: PILL SPLITTER OTHER PRN (17:00)
[2017-09-15] MEDS ORDERED: MISOPROSTOL 25 MCG SUPP VAGINAL ONE (17:00)
[2017-09-15] MEDS ORDERED: PENICILLIN G POTASSIUM INJ 2,500,000 UNITS in SODIUM CHLORIDE 0.9% INJ 100 ML IV SCH (18:00)
[2017-09-15] MEDS ORDERED: MAGNESIUM SULFATE 4 GM PREMIX 100 ML ONE (22:45)
[2017-09-15] MEDS ORDERED: MAGNESIUM SULFATE 40 GM PREMIX 1,000 ML ONE (22:45)
[2017-09-15] MEDS ORDERED: LIDOCAINE 2% JELLY 30 ML TUBE TOPICAL PRN (23:15)
--- NOTE | 2017-09-15 23:22 | HHI.PR ---
[employer] REPRESENTATIVE Note Note Patient is s/p 50 mcg cytotec for cervical ripening due to elevated blood pressure at 39-40 weeks. Patient bp 140-150/90's. Will start magnesium sulfate for prophylaxis at this time. Her labs are normal without proteinuria. FHR category 1 with baseline 140, moderate variability, no declerations. Continue planned induction/ripening. Nae Bob MD Sep 15, 2017 23:22
[2017-09-15] MEDS ORDERED: OXYTOCIN 30 UNITS-500ML PREMIX 500 ML IV PRN (23:30)
[2017-09-15] MEDS ORDERED: LIDOCAINE 2% JELLY 5 ML TUBE TOPICAL PRN (23:30)
[2017-09-15] MEDS ORDERED: OXYTOCIN 30 UNITS/NS 500ML PREMIX IV PRN (23:45)
[2017-09-16] VITALS (126 sets, daily range): BP systolic 80–157; BP diastolic 47–121; PULSE 90–285; RESP 16–20; TEMP 97.6–98.8; O2SAT 96–100
[2017-09-16] MEDS ORDERED: ONDANSETRON HCL 4 MG/2 ML VIAL IV PUSH PRN ×2 (00:45→07:30)
[2017-09-16] MEDS ORDERED: CALCIUM GLUCONATE 10% 1 GM/10 ML VIAL IV PUSH PRN (00:45)
[2017-09-16] MEDS ORDERED: MAGNESIUM SULFATE 4GRAM PRMIX-LOAD DOSE IV ONE (00:45)
[2017-09-16] MEDS: MAGNESIUM SULFATE 40 GM PREMIX 1,000 ML IV SCH ×2 (00:45→19:14)
[2017-09-16] MEDS ORDERED: LACTATED RINGER'S 1000 ML INJ 1,000 ML IV SCH (00:45)
[2017-09-16] MEDS ORDERED: fentaNYL 2MCG-BUPIV 0.125% INJ 100 ML ONE (02:42)
[2017-09-16] MEDS ORDERED: ePHEDrine/NS 25 MG/5 ML SYRINGE ONE (02:42)
[2017-09-16] MEDS ORDERED: NO SYSTEM NARCOTICS PRN (03:45)
[2017-09-16] MEDS ORDERED: ePHEDrine/NS 25 MG/5 ML SYRINGE IV PUSH PRN (03:45)
[2017-09-16] MEDS ORDERED: fentaNYL 2MCG-BUPIV 0.125% 100 ML EPIDURAL SCH (03:45)
[2017-09-16] MEDS ORDERED: DO NOT ADMINISTER ANTICOAGULANTS PRN (03:45)
[2017-09-16] MEDS ORDERED: TERBUTALINE INJ 1 MG/ML AMP ONE (06:09)
--- NOTE | 2017-09-16 06:14 | HHI.PR ---
YARN PREPARATION SUPERVISOR Note Note Patient has had good progress with spontaneous onset of labor after received cytotec. After epidural patient had decrease in blood pressure to 110/74 and 102/56 treated with IV fluids. Category 2 tracing with FHR 150 baseline with moderate variability and repetitive late fhr decelerations for approx 15 minutes. Amnioinfusion started after placement of IUPC with improvement noted. Will watch carefully. Nae Bob MD Sep 16, 2017 06:14
[2017-09-16] MEDS ORDERED: ceFAZolin 2 GM PREMIX 50 ML IV SCH (06:30)
[2017-09-16] MEDS ORDERED: MORPHINE SULFATE PF 5 MG/10 ML VIAL ONE (06:31)
--- NOTE | 2017-09-16 06:32 | HHI.PR ---
SHREDDING SPECIALIST Note Note Continued heart decelerations present despite oxygen, position changes, amnioinfusion, and fluid bolus. Cervix 6 cm. Will move to the OR for delivery due to persistent Category 2 tracing remote from delivery. Nae Bob MD Sep 16, 2017 06:32
[2017-09-16] MEDS ORDERED: ACETAMINOPHEN 1000 MG/100 ML 100 ML IV ONE (07:03)
--- NOTE | 2017-09-16 07:16 | PD.OB.DELI ---
Procedure Note Section Procedure Pre Op Diagnosis: (1) 39 weeks gestation of (2) Elevated blood pressure affecting in third trimester, antepartum (3) Obesity affecting in third trimester (4) Non-reassuring heart rate or rhythm affecting management of mother (5) delivery, delivered, current hospitalization Post Op Diagnosis: Performed by Nae Bob Procedure: Primary Low Transverse Sec Indication for delivery: Nonreassuring heart tracing Informed consent obtained: For anesthesia, For procedure Confirmed correct: Time-out taken Anesthesia: Epidural Medication prior to procedure: As documented in eMAR, Antibiotics, IV Urinary catheter: Inserted using sterile technique, To dependent drainage, ml urine output (200) Sterile preparation: Duraprep Position: Supine with wedge to left side Operative Features Skin Incision: Pfannenstiel Uterine Incision: Low transverse w/knife / blunt ext Membranes Ruptured: Previously Presentation: Occiput anterior Delivery date: Sep 16, 2017 Delivery time: 06:50 Delivery of infant: Uneventful, Umbilical cord : Male One Minute : 2 Five Minute : 7 Ten Minute : 8 Weight: 4850gms Status of : Viable, Cord blood Placenta delivered: Intact Estimated blood loss: 600 Procedure tolerated: Well Maternal Condition: Stable Condition: Stable Nae Bob MD Sep 16, 2017 07:16
[2017-09-16] MEDS ORDERED: oxyCODONE/ACETAMINOPHEN 5 MG/325 MG TAB PO PRN (07:30)
[2017-09-16] MEDS ORDERED: SODIUM CHLORIDE 0.9% FLUSH 10 ML FLUSH IV FLUSH PRN (07:30)
[2017-09-16] MEDS ORDERED: SIMETHICONE 80 MG CHEWABLE TAB PO PRN (07:30)
[2017-09-16] MEDS ORDERED: OXYTOCIN 30 UNITS-500ML PREMIX 500 ML IV ONE (07:30)
--- NOTE | 2017-09-16 07:53 | MP ---
cc: ROLDAN CATALAN M.D. DATE OF SURGERY 09/16/2017 SURGEON Roldan Catalan MD PREOPERATIVE DIAGNOSES 1. 39 weeks' gestation. 2. Elevated blood pressure affecting in the third trimester. 3. Maternal obesity affecting . 4. Non-reassuring heart rate tracing with a persistent Category II tracing. 5. Macrosomia of the infant. POSTOPERATIVE DIAGNOSIS 1. 39 weeks' gestation. 2. Elevated blood pressure affecting in the third trimester. 3. Maternal obesity affecting . 4. Non-reassuring heart rate tracing with a persistent Category II tracing. 5. Macrosomia of the infant. PROCEDURE Primary low transverse section without extension. ESTIMATED BLOOD LOSS 600 cc ANESTHETIC Epidural DRAINS Devine to gravity. MEDICATIONS Ancef 2 grams given intraoperatively due to the urgent nature the section. COUNTS Correct x3 PATHOLOGY Placenta. FINDINGS 1. Normal uterus, tubes and ovaries. 2. Clear amniotic fluid. 3. Infant male in a vertex presentation. Tight nuchal cord x1 without Apgars of 2, 7 and 8. 4. weight was 4850 grams which is equal to 10 pounds, 11 ounces. Neonatology was present at the delivery. DESCRIPTION OF PROCEDURE The patient was taken back to the operating room, prepped and draped in the usual sterile fashion, placed in dorsosupine position with a wedge to her left side. After adequate anesthetic was administered, a Pfannenstiel incision was made in the skin, taken down to the fascia. The fascia was nicked in the midline, extended bilaterally, then taken off the rectus muscles. The rectus muscles were divided in the midline. The anterior peritoneum was entered, extended superiorly and inferiorly taking care to avoid traumatization of the bowel or the bladder. The vesicouterine peritoneum was taken down and a transverse hysterotomy incision was made, bluntly extended bilaterally. The head was delivered to the operative field. Nuchal cord was reduced. The rest of the body was delivered and handed off to the resuscitation team for subsequent care. Doubly clamped cord segment was taken for cord blood analysis and arterial blood gas. The placenta was delivered intact spontaneously and the endometrial cavity was curetted with moist laparotomy sponge. The hysterotomy incision was repaired using running locking #1 chromic suture with good hemostasis at closure. The gutters were rendered free of all blood and clot material. The fascia was then closed with #1 PDS in a running fashion. The subcutaneous tissue was made hemostatic with a Bovie and closed with a running suture of 3-0 plain gut. 3-0 Monocryl was placed into the skin. The patient tolerated the procedure well. She was taken back to the recovery room in good condition. MD MAUDE [place]/JUAN PABLO /7:17 AM /7:39 AM
[2017-09-16] MEDS: SODIUM CHLORIDE 0.9% FLUSH 10 ML FLUSH IV FLUSH SCH ×2 (09:00→21:00)
[2017-09-16] MEDS: IBUPROFEN 600 MG TAB PO PRN ×2 (10:28→22:35)
[2017-09-16] MEDS ORDERED: OXYTOCIN 30 UNITS-500ML PREMIX 500 ML IV PRN (17:30)
[2017-09-16] MEDS: LACTATED RINGER'S 1000 ML INJ 1,000 ML IV SCH (19:11)
[2017-09-17] VITALS (13 sets, daily range): BP systolic 115–149; BP diastolic 52–87; PULSE 96–122; RESP 16–20; TEMP 98.1–98.7; O2SAT 92–97
[2017-09-17 06:21] LABS: AUTOMATED NEUTROPHIL # 11.8 TH/MM3 (1.8-7.7); BASOPHIL # 0.1 TH/MM3 (0-0.2); BASOPHIL % 0.8 % (0.0-2.0); EOSINOPHIL # 0.1 TH/MM3 (0-0.4); EOSINOPHIL % 0.4 % (0.0-4.0); HEMATOCRIT 36.2 % (35.0-46.0); LYMPH % 15.9 % (9.0-44.0); LYMPHOCYTE # 2.5 TH/MM3 (1.0-4.8); MEAN CELL VOLUME 92.4 FL (80.0-100.0); MEAN CORPUSCULAR HEMOGLOBIN 30.6 PG (27.0-34.0); MEAN CORPUSCULAR HGB CONC 33.2 % (32.0-36.0); MEAN PLATELET VOLUME 10.1 FL (7.0-11.0); MONO % 6.6 % (0.0-8.0); NEUT % 76.3 % (16.0-70.0); PLATELET COUNT 139 TH/MM3 (150-450); RED BLOOD COUNT 3.92 MIL/MM3 (4.00-5.30); RED CELL DISTRIBUTION WIDTH 15.5 % (11.6-17.2); WHITE BLOOD COUNT 15.5 TH/MM3 (4.0-11.0)
--- NOTE | 2017-09-17 08:26 | HHI.OB ---
Subjective Post Operative Day: 1 Remarks POD 1 afebrile vital signs stable , blood pressures been within normal limits , magnesium sulfate just discontinued Patient complains of incisional pain only Objective Vitals/I&O Vital Signs Date Time Temp Pulse Resp B/P (MAP) Pulse Ox O2 Delivery O2 Flow Rate FiO2 09/17/17 08:13 108 149/87 (107) 09/17/17 08:00 98.1 09/17/17 07:00 98 134/72 (92) 09/17/17 06:00 122 137/71 (93) 09/17/17 05:01 97 131/64 (86) 09/17/17 05:01 16 09/17/17 04:00 112 115/54 (74) 09/17/17 03:00 110 117/52 (73) 09/17/17 02:01 112 121/56 (77) 09/17/17 01:00 122 118/53 (74) 09/17/17 00:00 102 119/62 (81) 09/16/17 23:59 97.7 18 09/16/17 23:00 93 140/75 (96) 09/16/17 22:15 105 139/66 (90) 09/16/17 22:00 116 150/94 (112) 09/16/17 21:45 103 143/75 (97) 09/16/17 21:30 107 134/72 (92) 09/16/17 21:15 104 141/77 (98) 09/16/17 21:00 102 140/68 (92) 09/16/17 20:45 111 128/71 (90) 09/16/17 20:30 99 132/65 (87) 09/16/17 20:15 93 125/65 (85) 09/16/17 20:01 100 131/77 (95) 09/16/17 20:00 18 09/16/17 19:58 91 135/72 (93) 09/16/17 18:00 90 18 09/16/17 18:00 146/66 (92) 09/16/17 17:00 100 138/64 (88) 09/16/17 16:00 97.6 104 135/61 (85) 09/16/17 15:00 111 148/58 (88) 09/16/17 14:00 100 136/60 (85) 09/16/17 12:59 107 146/51 (82) 09/16/17 12:00 117 145/72 (96) 09/16/17 11:00 105 157/85 (109) 09/16/17 10:00 18 09/16/17 10:00 99 149/82 (104) 09/16/17 08:55 100 18 99 09/16/17 08:55 120/59 (79) 09/16/17 08:45 97.8 09/16/17 08:45 100 20 98 09/16/17 08:44 120/58 (78) 09/16/17 08:30 99 18 123/67 (85) 98 Result Diagram: 09/17/17 0441 09/15/17 1211 Objective Remarks GENERAL: Well-nourished, well-developed patient. CARDIOVASCULAR: Regular rate and rhythm without murmurs, gallops, or rubs. RESPIRATORY: Breath sounds equal bilaterally. No accessory muscle use. ABDOMEN/GI: Abdomen soft, non-tender, bowel sounds decreased , 2+ distention Incision: Clean, dry and intact. Fundus: Firm, non-tender at umbilicus. GENITOURINARY: Light to moderate bleeding. EXTREMITIES: No cyanosis or edema, non-tender, without signs of DVT. Medications and IVs Current Medications Medications (Trade) Dose Ordered Sig/Clarita Route Start Time Stop Time Status Last Admin (Xylocaine 1% Inj) 0.1 ml UNSCH X1 PRN I-DERMAL 09/15/17 14:00 09/18/17 13:59 (Bicitra Liq) 30 ml DEMOLITION WORKER PO 09/15/17 14:00 09/19/17 13:59 (Xylocaine 1% Inj) 10 ml UNSCH X1 PRN INFIL 09/15/17 14:00 09/17/17 13:59 (Muri-Lube Oil) 10 ml UNSCH PRN TOPICAL 09/15/17 14:00 (Pill Splitter) 1 ea UNSCH PRN OTHER 09/15/17 17:00 (Xylocaine 2% Jelly) 1 applic QID PRN TOPICAL 09/15/17 23:30 Magnesium Sulfate 1,000 ml @ 50 mls/hr Q20H IV 09/16/17 00:45 09/16/17 19:14 (Calcium Gluconate Inj) 1 gm UNSCH PRN IV PUSH 09/16/17 00:45 Fentanyl/ Bupivacaine HCl 100 ml @ 0 mls/hr TITRATE EPIDURAL 09/16/17 03:45 09/16/17 07:15 Cefazolin Sodium/ Dextrose 50 ml @ 100 mls/hr DEMOLITION WORKER IV 09/16/17 06:30 09/20/17 06:29 Oxytocin 500 ml @ 100 mls/hr UNSCH X1 PRN IV 09/16/17 17:30 09/17/17 17:29 (NS Flush) 2 ml BID IV FLUSH 09/16/17 09:00 (NS Flush) 2 ml UNSCH PRN IV FLUSH 09/16/17 07:30 (Mylicon Chew) 80 mg QID PRN PO 09/16/17 07:30 (Motrin) 600 mg Q6H PRN PO 09/16/17 07:30 09/16/17 22:35 (Percocet 5-325 Mg) 1 tab Q4H PRN PO 09/16/17 07:30 (Percocet 5-325 Mg) 2 tab Q4H PRN PO 09/16/17 07:30 (Jenifer-Colace) 2 tab Q12H PRN PO 09/16/17 07:30 (M-M-R Ii Inj) 0.5 ml ONCE ONCE SQ 09/17/17 16:00 09/17/17 16:01 (Boostrix Inj) 0.5 ml ONCE ONCE IM 09/17/17 16:00 09/17/17 16:01 (Zofran Inj) 4 mg Q6H PRN IV PUSH 09/16/17 07:30 Assessment/Plan Assessment and Plan Postop day 1 status post , -induced hypertension ,now off magnesium sulfate, with normal blood pressures at this time Plan-progressive postop care, increase ambulation, advanced diet, monitor blood pressures Lopez Paz II, MD Sep 17, 2017 08:26
[2017-09-17] MEDS: SODIUM CHLORIDE 0.9% FLUSH 10 ML FLUSH IV FLUSH SCH (09:00)
[2017-09-17] MEDS: LACTATED RINGER'S 1000 ML INJ 1,000 ML IV SCH (09:00)
[2017-09-17] MEDS: IBUPROFEN 600 MG TAB PO PRN ×2 (09:01→17:42)
[2017-09-17] MEDS: oxyCODONE/ACETAMINOPHEN 5 MG/325 MG TAB PO PRN ×3 (10:52→23:06)
[2017-09-17] MEDS ORDERED: DIPHTH/TETANUS/ACEL PERTUSSIS (BOOSTER) 0.5 ML VIAL/PFS IM ONE (16:00)
[2017-09-17] MEDS ORDERED: MEASLES, MUMPS, RUBELLA VACCINE 0.5 ML VIAL SQ ONE (16:00)
[2017-09-17] MEDS: DOCUSATE SODIUM 50 MG/SENNA 8.6 MG TAB PO PRN (23:07)
[2017-09-18] VITALS: BP 142/78; PULSE 102; RESP 20; TEMP 98.4; O2SAT 98
[2017-09-18] MEDS: IBUPROFEN 600 MG TAB PO PRN ×3 (00:42→23:07)
[2017-09-18 04:00] VITALS: BP 145/75; PULSE 101; RESP 18; TEMP 97.8; O2SAT 97
--- NOTE | 2017-09-18 07:41 | HHI.OB ---
Subjective Post Operative Day: 2 Remarks Postoperative day number 2. AFVSS overnight. Pain improved. Incision not draining. Decreased lochia. Denies dysuria. No breast tenderness. She is feeding the baby via breast. Appetite good. No nausea or vomiting. Endorses flatus. No bowel movement. Ambulating well. Denies calf pain, shortness of breath, or cough. Otherwise, she is doing well this morning and has no other complaints. Denies any headaches or blurry vision. Objective Vitals/I&O Vital Signs Date Time Temp Pulse Resp B/P (MAP) Pulse Ox O2 Delivery O2 Flow Rate FiO2 09/18/17 04:00 101 145/75 (98) 09/18/17 04:00 97.8 18 97 09/18/17 00:00 98.4 102 20 142/78 (99) 98 09/17/17 20:00 98.4 96 20 136/83 (100) 92 09/17/17 17:00 101 18 132/74 (93) 09/17/17 14:00 111 131/80 (97) 09/17/17 14:00 98.7 18 97 09/17/17 11:45 18 09/17/17 08:13 108 149/87 (107) 09/17/17 08:00 18 09/17/17 08:00 98.1 Result Diagram: 09/17/17 0441 09/15/17 1211 Objective Remarks GENERAL: Well-nourished, well-developed patient. CARDIOVASCULAR: Regular rate and rhythm without murmurs, gallops, or rubs. RESPIRATORY: Breath sounds equal bilaterally. No accessory muscle use. ABDOMEN/GI: Abdomen soft, non-tender, bowel sounds decreased , 2+ distention Incision: Clean, dry and intact. Fundus: Firm, non-tender at umbilicus. GENITOURINARY: Light to moderate bleeding. EXTREMITIES: No cyanosis or edema, non-tender, without signs of DVT. Medications and IVs Current Medications Medications (Trade) Dose Ordered Sig/Clarita Route Start Time Stop Time Status Last Admin (Xylocaine 1% Inj) 0.1 ml UNSCH X1 PRN I-DERMAL 09/15/17 14:00 09/18/17 13:59 (Bicitra Liq) 30 ml TIMBER FELLER PO 09/15/17 14:00 09/19/17 13:59 (Muri-Lube Oil) 10 ml UNSCH PRN TOPICAL 09/15/17 14:00 (Pill Splitter) 1 ea UNSCH PRN OTHER 09/15/17 17:00 (Xylocaine 2% Jelly) 1 applic QID PRN TOPICAL 09/15/17 23:30 Magnesium Sulfate 1,000 ml @ 50 mls/hr Q20H IV 09/16/17 00:45 09/16/17 19:14 (Calcium Gluconate Inj) 1 gm UNSCH PRN IV PUSH 09/16/17 00:45 Fentanyl/ Bupivacaine HCl 100 ml @ 0 mls/hr TITRATE EPIDURAL 09/16/17 03:45 09/16/17 07:15 Cefazolin Sodium/ Dextrose 50 ml @ 100 mls/hr TIMBER FELLER IV 09/16/17 06:30 09/20/17 06:29 (NS Flush) 2 ml BID IV FLUSH 09/16/17 09:00 (NS Flush) 2 ml UNSCH PRN IV FLUSH 09/16/17 07:30 (Mylicon Chew) 80 mg QID PRN PO 09/16/17 07:30 (Motrin) 600 mg Q6H PRN PO 09/16/17 07:30 09/18/17 00:42 (Percocet 5-325 Mg) 1 tab Q4H PRN PO 09/16/17 07:30 09/17/17 23:06 (Percocet 5-325 Mg) 2 tab Q4H PRN PO 09/16/17 07:30 (Jenifer-Colace) 2 tab Q12H PRN PO 09/16/17 07:30 09/17/17 23:07 (Zofran Inj) 4 mg Q6H PRN IV PUSH 09/16/17 07:30 Assessment/Plan Assessment and Plan 21y/o female who is POD#2 s/p CXN. -Continue routine care -S/p Mg for HTN, continue to monitor -Percocet and Motrin PRN pain. -Encouraged OOB. Advised pelvic rest for 6 wks. Will need a f/u appt. in 1 wk for incision check. -Re: ctrl, she is undecided -D/c tomorrow Philipp Palma MD Sep 18, 2017 07:40
[2017-09-18 08:00] VITALS: BP 142/83; PULSE 110; RESP 15; TEMP 98; O2SAT 97
[2017-09-18] MEDS: DOCUSATE SODIUM 50 MG/SENNA 8.6 MG TAB PO PRN (08:06)
[2017-09-18 12:00] VITALS: BP 140/75; PULSE 109; RESP 18; TEMP 98.8; O2SAT 97
[2017-09-18] MEDS: oxyCODONE/ACETAMINOPHEN 5 MG/325 MG TAB PO PRN ×2 (12:45→23:06)
[2017-09-18 16:00] VITALS: BP 133/80; PULSE 93; RESP 16; TEMP 97.9; O2SAT 99
[2017-09-18 19:15] VITALS: BP 146/75; PULSE 93; RESP 18; TEMP 98.4
--- NOTE | 2017-09-19 09:04 | HHI.OB ---
Subjective Remarks 21 year old s/p C/S at 39 wks gestation, POD 3. AFVSS. Patient reports she is feeling well. Bleeding is decreasing and pain is well-controlled. She is breast feeding and bonding well with baby. Ambulating without difficulties. She is tolerating a diet without nausea or vomiting. She has had a bowel movement. She has passed gas. Denies chest pain, dysuria, shortness of breath, or calf pain. Objective Vitals/I&O Vital Signs Date Time Temp Pulse Resp B/P (MAP) Pulse Ox O2 Delivery O2 Flow Rate FiO2 09/18/17 19:15 98.4 18 09/18/17 19:15 93 146/75 (98) 09/18/17 16:00 97.9 93 16 133/80 (97) 99 09/18/17 12:00 109 18 140/75 (96) 09/18/17 12:00 98.8 97 Result Diagram: 09/17/17 0441 09/15/17 1211 Objective Remarks GENERAL: Well-nourished, well-developed patient. CARDIOVASCULAR: Regular rate and rhythm without murmurs, gallops, or rubs. RESPIRATORY: Breath sounds equal bilaterally. No accessory muscle use. ABDOMEN/GI: Abdomen soft, non-tender, bowel sounds decreased , 2+ distention Incision: Clean, dry and intact. Fundus: Firm, non-tender at umbilicus. GENITOURINARY: Light to moderate bleeding. EXTREMITIES: No cyanosis or edema, non-tender, without signs of DVT. Medications and IVs Current Medications Medications (Trade) Dose Ordered Sig/[facility] Route Start Time Stop Time Status Last Admin (Bicitra Liq) 30 ml OPERATIONS CONSULTANT PO 09/15/17 14:00 09/19/17 13:59 (Muri-Lube Oil) 10 ml UNSCH PRN TOPICAL 09/15/17 14:00 (Pill Splitter) 1 ea UNSCH PRN OTHER 09/15/17 17:00 (Xylocaine 2% Jelly) 1 applic QID PRN TOPICAL 09/15/17 23:30 Magnesium Sulfate 1,000 ml @ 50 mls/hr Q20H IV 09/16/17 00:45 09/16/17 19:14 (Calcium Gluconate Inj) 1 gm UNSCH PRN IV PUSH 09/16/17 00:45 Fentanyl/ Bupivacaine HCl 100 ml @ 0 mls/hr TITRATE EPIDURAL 09/16/17 03:45 09/16/17 07:15 Cefazolin Sodium/ Dextrose 50 ml @ 100 mls/hr OPERATIONS CONSULTANT IV 09/16/17 06:30 09/20/17 06:29 (NS Flush) 2 ml BID IV FLUSH 09/16/17 09:00 (NS Flush) 2 ml UNSCH PRN IV FLUSH 09/16/17 07:30 (Mylicon Chew) 80 mg QID PRN PO 09/16/17 07:30 09/18/17 08:06 (Motrin) 600 mg Q6H PRN PO 09/16/17 07:30 09/18/17 23:07 (Percocet 5-325 Mg) 1 tab Q4H PRN PO 09/16/17 07:30 09/18/17 23:06 (Percocet 5-325 Mg) 2 tab Q4H PRN PO 09/16/17 07:30 (Jenifer-Colace) 2 tab Q12H PRN PO 09/16/17 07:30 09/18/17 08:06 (Zofran Inj) 4 mg Q6H PRN IV PUSH 09/16/17 07:30 Assessment/Plan Assessment and Plan 21y/o female who is POD 3 s/p CXN for distress -Continue routine care -S/p Mg for HTN, continue to monitor -Percocet and Motrin PRN pain -Encouraged OOB. Advised pelvic rest for 6 wks. Will need a f/u appt. in 1 wk for incision check. -Re: ctrl, she plans to obtain an IUD -D/c home today Deniz Presley MD Sep 19, 2017 09:04
[2017-09-19] MEDS ORDERED: IBUP-232 PO (09:06)
--- NOTE | 2017-09-19 09:07 | HHI.DCPOC ---
Discharge Care Plan Diagnosis: (1) delivery, delivered, current hospitalization (2) Non-reassuring heart rate or rhythm affecting management of mother (3) 39 weeks gestation of (4) Elevated blood pressure affecting in third trimester, antepartum (5) Obesity affecting in third trimester Report Symptoms to Your Doctor -Temperature above 100.5 degrees -Redness, of incision or excessive or foul smelling drainage -Unusual pain or calf pain -Increased vaginal bleeding -Painful or difficulty urinating -Feelings of extreme sadness or anxiety after 2 weeks Goals to Promote Your Health * To prevent worsening of your condition and complications * To maintain your health at the optimal level Directions to Meet Your Goals Take your medications as prescribed Follow your dietary instruction Follow activity as directed Ensure plenty of rest for recovery Drink fluids for hydration Keep your appointments as scheduled Take your immunizations and boosters as scheduled If your symptoms worsen call your PCP, if no PCP go to Urgent Care Center or Emergency Room Smoking is Dangerous to Your Health. Avoid second hand smoke Call the 24-hour crisis hotline for domestic abuse at Deniz Presley MD Sep 19, 2017 09:07
[2017-09-19 09:20] VITALS: BP 150/82; PULSE 108; RESP 20; TEMP 98.9; O2SAT 98
[2017-09-19 09:21] VITALS: BP 128/73
== END 2017-09-19 12:02 | disposition home or self-care (01) | DRG 766 ==
LOC: HOBED 11:24 → H2EA 14:15 → H1EA 09-17 13:06
PROVIDERS: ADMIT Obstetrics & Gynecology Obstetrics; ATTEND Obstetrics & Gynecology Obstetrics
PROC: 3E0P7VZ Introduction of Hormone into Female Reproductive, Via Natural or Artificial Opening (ICD-10-PCS; 2017-09-15)
PROC: 10D00Z1 Extraction of Products of Conception, Low, Open Approach (ICD-10-PCS; principal; 2017-09-16)
PROC: 3E0E7GC Introduction of Other Therapeutic Substance into Products of Conception, Via Natural or Artificial Opening (ICD-10-PCS; 2017-09-16)
PROC: 10H07YZ Insertion of Other Device into Products of Conception, Via Natural or Artificial Opening (ICD-10-PCS; 2017-09-16)
PROC: 3E0R3BZ Introduction of Anesthetic Agent into Spinal Canal, Percutaneous Approach (ICD-10-PCS; 2017-09-16)
PROC: 00HU33Z Insertion of Infusion Device into Spinal Canal, Percutaneous Approach (ICD-10-PCS; 2017-09-16)
DX: O13.4 Gestational [pregnancy-induced] hypertension without significant proteinuria, complicating childbirth (principal); E66.9 Obesity, unspecified; O99.824 Streptococcus B carrier state complicating childbirth; O36.63X0 Maternal care for excessive fetal growth, third trimester, not applicable or unspecified; O99.214 Obesity complicating childbirth; O76 Abnormality in fetal heart rate and rhythm complicating labor and delivery; O69.1XX0 Labor and delivery complicated by cord around neck, with compression, not applicable or unspecified; Z37.0 Single live birth; Z3A.39 39 weeks gestation of pregnancy
CPT/HCPCS: 59025; 80053; 80307; 81001; 82570; 82805; 84156; 84550; 85025; 85027; 86900; 86901; 87086; 88307; 90715; J0131; J0690; J2274; J2540; J3105; J3475; J7120